=== PATIENT | male | born 1985 | race Caucasian/White ===

== ENCOUNTER 2018-03-20 11:17 | Emergency (ER) | payer OTHER ==
[~2018-03-20] VITALS: Ht 175.3 cm; Wt 105.7 kg
[2018-03-20 12:44] VITALS: BP 128/77
== END 2018-03-20 12:44 | disposition home or self-care (01) ==
LOC: ED 11:17
DX: K64.9 Unspecified hemorrhoids (principal)

== ENCOUNTER 2018-04-01 21:13 | Emergency (ER) | payer OTHER ==
[~2018-04-01] VITALS: Ht 175.3 cm; Wt 106.1 kg
[2018-04-01 21:30] VITALS: Ht 175.3 cm; Wt 106.1 kg
[2018-04-01 22:45] LABS: BASOPHIL % 0.8 % (0-2); PLATELET COUNT 263 x10^3mcL (130-400); RED CELL DISTRIBUTION WIDTH 12.8 % (11.5-14.5)
[2018-04-01 23:08] LABS: CALCIUM 8.6 mg/dL (8.5-10.1); CARBON DIOXIDE 25.1 mmol/L (21-32); CHLORIDE SERUM 106 mmol/L (98-107); CREATININE SERUM 0.9 mg/dL (0.7-1.3); GFR1 > 60 mL/min; GLUCOSE SERUM 102 mg/dL (74-106); POTASSIUM SERUM 3.7 mmol/L (3.5-5.1); SODIUM SERUM 141 mmol/L (136-145)
[2018-04-01 23:12] LABS: ALBUMIN 3.4 g/dL (3.4-5.0); ALKALINE PHOSPHATASE 93 U/L (46-116); ALT/SGPT 42 U/L (16-63); AST/SGOT 22 U/L (15-37); BILIRUBIN TOTAL 0.22 mg/dL (0.20-1.00); LIPASE 95 IU/L (73-393); TOTAL PROTEIN, SERUM 7.4 g/dL (6.4-8.2)
[2018-04-01 23:42] VITALS: BP 132/78
== END 2018-04-01 23:42 | disposition home or self-care (01) ==
LOC: ED 21:13
PROVIDERS: Emergency Medicine
DX: K62.5 Hemorrhage of anus and rectum (principal); K64.4 Residual hemorrhoidal skin tags
CPT/HCPCS: 36415